=== PATIENT | male | born 1950 | race Caucasian/White ===

== ENCOUNTER 2019-08-13 11:48 | Outpatient (CLI) | payer MEDICARE, SELFPAY ==
--- NOTE | 2019-08-13 11:56 | XR_ITS ---
WS: [id number] ABDOMEN KUB CLINICAL INFORMATION: Renal/ureteral calculi. COMPARISON: FINDINGS: Lumbar curve convex left. Osteopenia. Vascular calcification. Stable appearing bilateral subcentimete r renal parenchymal calculi unchanged. No visualized ureteral calculi. XR/XR KUB [id number] Impression: A few unchanged subcentimeter renal parenchymal calculi. No ureteral calculi.
== END 2019-08-13 11:49 | disposition home or self-care (01) ==
LOC: RAD 11:55
PROVIDERS: Family Provider Family Medicine; PCP Family Medicine; Visit Provider Urology
DX: N20.1 Calculus of ureter (principal)
CPT/HCPCS: 74018

== ENCOUNTER 2020-02-13 06:58 | Outpatient (CLI) | payer MEDICARE, SELFPAY ==
--- NOTE | 2020-02-13 07:15 | US_ITS ---
WS: [id number] RENAL ULTRASOUND Urinary bladder ultrasound HISTORY: Enlarged prostate. COMPARISON: None available. TECHNIQUE: 2-D and color Doppler imaging of the kidney submitted. Right kidney: 10.0 cm x 5.4 cm x 6.9 cm. Normal echogenicity with no hydronephrosis or mass. Left kidney: 11.3 cm x 6.5 cm x 5.7 cm. Normal echogenicity with no hydronephrosis or mass. Aorta: Normal. Urinary Bladder: Moderately well distended urinary bladder. There is diffuse wall thickening. Marked enlargement of the prostate gland. Prostate gland is lobulated and indents into the posterior bladder . Prostate extends over length of at least 7.7 cm and transversely by 6.4 cm. US/US renal BI* [id number] IMPRESSION: 1. Normal renal ultrasound. No hydronephrosis. 2. Diffuse bladder wall thickening is probably from chronic outlet obstruction . 3. Marked enlargement and heterogeneity of the prostate gland. Prostate neopla sm is not excluded.
[2020-02-13 07:37] LABS: Anion Gap 15.5 (5-19); Blood Urea Nitrogen 20 mg/dL (8-23); Calcium 9.4 mg/dL (8.5-10.5); Carbon Dioxide 23 mmol/L (22-29); Chloride 100 mmol/L (98-107); Glomerular Filtration Rate 66.8 mL/min (90-130); Glucose 250 mg/dL (65-115); Osmolality Calculated 283 mOsm/kg (285-295); Potassium 4.5 mmol/L (3.5-5.1); Sodium 134 mmol/L (136-145)
== END 2020-02-13 06:59 | disposition home or self-care (01) ==
LOC: US 06:58
PROVIDERS: Family Provider Family Medicine; PCP Family Medicine; Visit Provider Urology
DX: R33.9 Retention of urine, unspecified (principal); N40.0 Benign prostatic hyperplasia without lower urinary tract symptoms
CPT/HCPCS: 76770; 80048; 84153

== ENCOUNTER → 2021-02-12 09:29 | Outpatient (BNVA) | payer OTHER, MEDICARE, SELFPAY | PROVIDERS: Family Provider Family Medicine; PCP Family Medicine; Visit Provider Urology | DX: N31.9 Neuromuscular dysfunction of bladder, unspecified (principal) | CPT/HCPCS: 80048; 84153 ==

== ENCOUNTER → 2021-08-19 10:58 | Outpatient (BNVA) | payer MEDICARE, SELFPAY | PROVIDERS: Family Provider Family Medicine; PCP Family Medicine; Visit Provider Urology | DX: N20.0 Calculus of kidney (principal); R97.20 Elevated prostate specific antigen [PSA] | CPT/HCPCS: 84153 ==

== ENCOUNTER → 2022-01-05 12:15 | Outpatient (BNVA) | payer MEDICARE, SELFPAY | PROVIDERS: Family Provider Family Medicine; PCP Family Medicine; Visit Provider Family Medicine | DX: M54.2 Cervicalgia (principal); E11.65 Type 2 diabetes mellitus with hyperglycemia; I10 Essential (primary) hypertension; E11.8 Type 2 diabetes mellitus with unspecified complications | CPT/HCPCS: 80053; 80061; 83036 ==

== ENCOUNTER 2022-02-10 09:15 | Outpatient (CLI) | payer MEDICARE, SELFPAY ==
[2022-02-10 10:31] LABS: Prostate Specific AG Urology 6.01 ng/mL (0-4)
== END 2022-02-10 09:16 | disposition home or self-care (01) ==
PROVIDERS: PCP Family Medicine; Visit Provider Urology
DX: R97.20 Elevated prostate specific antigen [PSA] (principal)
CPT/HCPCS: 36415; 84153

== ENCOUNTER → 2022-02-15 07:57 | Outpatient (BNVA) | payer MEDICARE, SELFPAY | PROVIDERS: PCP Family Medicine; Visit Provider Urology | DX: R97.20 Elevated prostate specific antigen [PSA] (principal); R33.9 Retention of urine, unspecified; N20.0 Calculus of kidney | CPT/HCPCS: 99213 ==

== ENCOUNTER → 2022-07-05 08:10 | Outpatient (BNVA) | payer MEDICARE, SELFPAY | PROVIDERS: PCP Family Medicine; Visit Provider Family Medicine | DX: E11.8 Type 2 diabetes mellitus with unspecified complications (principal); I10 Essential (primary) hypertension | CPT/HCPCS: 80053; 83036; 85025 ==

== ENCOUNTER → 2022-07-26 13:39 | Outpatient (BNVA) | payer MEDICARE, SELFPAY | PROVIDERS: PCP Family Medicine; Visit Provider Family Medicine | DX: L03.119 Cellulitis of unspecified part of limb (principal) | CPT/HCPCS: 85025; 86140 ==

== ENCOUNTER → 2022-07-29 08:34 | Outpatient (BNVA) | payer MEDICARE, SELFPAY | PROVIDERS: PCP Family Medicine; Visit Provider Podiatrist Foot & Ankle Surgery | DX: I73.9 Peripheral vascular disease, unspecified (principal); E11.621 Type 2 diabetes mellitus with foot ulcer; L97.529 Non-pressure chronic ulcer of other part of left foot with unspecified severity; L84 Corns and callosities; E11.9 Type 2 diabetes mellitus without complications; G62.9 Polyneuropathy, unspecified | CPT/HCPCS: 11055; 73630; 99204 ==

== ENCOUNTER → 2022-08-05 08:18 | Outpatient (BNVA) | payer MEDICARE, SELFPAY | PROVIDERS: PCP Family Medicine; Visit Provider Podiatrist Foot & Ankle Surgery | DX: E11.621 Type 2 diabetes mellitus with foot ulcer (principal); E11.9 Type 2 diabetes mellitus without complications; L03.119 Cellulitis of unspecified part of limb; I73.9 Peripheral vascular disease, unspecified; G62.9 Polyneuropathy, unspecified; L97.529 Non-pressure chronic ulcer of other part of left foot with unspecified severity; L97.429 Non-pressure chronic ulcer of left heel and midfoot with unspecified severity | CPT/HCPCS: 11042; A6219 ==

== ENCOUNTER → 2022-08-10 13:00 | Outpatient (BNVA) | payer MEDICARE, SELFPAY | PROVIDERS: PCP Family Medicine; Visit Provider Thoracic Surgery (Cardiothoracic Vascular Surgery) | DX: E11.621 Type 2 diabetes mellitus with foot ulcer (principal); L89.892 Pressure ulcer of other site, stage 2; E11.622 Type 2 diabetes mellitus with other skin ulcer; L89.622 Pressure ulcer of left heel, stage 2 | CPT/HCPCS: 99213; A6219 ==

== ENCOUNTER → 2022-08-17 11:49 | Outpatient (BNVA) | payer MEDICARE, SELFPAY | PROVIDERS: PCP Family Medicine; Visit Provider Thoracic Surgery (Cardiothoracic Vascular Surgery) | DX: I96 Gangrene, not elsewhere classified (principal); E11.621 Type 2 diabetes mellitus with foot ulcer; L89.892 Pressure ulcer of other site, stage 2; E11.622 Type 2 diabetes mellitus with other skin ulcer; L89.622 Pressure ulcer of left heel, stage 2 | CPT/HCPCS: 11042 ==

== ENCOUNTER 2022-08-19 14:34 | Outpatient (CLI) | payer MEDICARE, SELFPAY ==
--- NOTE | 2022-08-19 15:00 | USCV_ITS ---
Kushal Rodriguez Age: 72 Gender: M : 1950 Exam Date: 08/19/2022 15:53 Ordering Phys: Sundeep Schafer MD (Andy) ([email or web address] [place] Technologist: CT [place] [facility] [place]: pvd Risk Factors: Previous Vascular Surgery: RIGHT LEFT BP: 168.0 / 81.00 BP: 160.0/ 84.00 0 0 Waveform Velocity (cm/s) Velocity (cm/s) Waveform Triphasic 184.6 Iliac Prox 125.2 Triphasic Triphasic 169.2 Iliac Mid 122.2 Monophasic Triphasic 143.4 Iliac Distal 105.5 Triphasic Triphasic 193.7 INSTRUMENT PANEL ASSEMBLER 122.2 Monophasic Monophasic 133.6 SFA Prox 40.0 Monophasic Monophasic 201.1 SFA Mid 42.3 Monophasic Monophasic 111.4 SFA Dist 42.3 Monophasic Monophasic 53.8 POP 28.2 Monophasic Monophasic 82.8 CASHIERS SUPERVISOR 50.0 Monophasic Monophasic 28.7 DPA 0.0 N/A 0.9 OMAR 0.0 FINDINGS lft dpa is occluded and the left vessel captain will not occlude via cuff compression, left omar unattainable, left artial flow appears worse than rt. Mild to moderate diffuse plaque in the right iliac, femoral and popliteal arteries. Sluggish flow in the right dorsalis pedis artery Monophasic and continuous low velocity Doppler waveforms in the left mid and distal superficial femoral artery, popliteal and posterior tibial arteries. No flow was dictated in the dorsalis pedis artery. The left posterior tibial artery was found to be noncompressible CONCLUSIONS 1. Mild to moderate diffuse plaques in the right iliac, femoral and popliteal arteries with a resting OMAR of 0.9. Previous history of mild peripheral artery disease. 2. 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 The abnormal Doppler flow pattern is suggesting collateral filling of the mid to distal superficial femoral, popliteal and posterior tibial vessels. Suggest peripheral angiogram/CTA to further evaluate the arteries of the left lower extremity. Dr Courtney Isabel MD [facility] (Electronically Signed) Final Date: 20 August 2022 13:10 S
--- NOTE | 2022-08-19 16:00 | MR_ITS ---
WS: [id number] MRI CERVICAL SPINE NONCONTRAST HISTORY: neck pain/ pain and weakness in left arm COMPARISON: None available. Technique: Multiplanar, multisequence noncontrast imaging of the cervical spine. Mild straightening and slight reversal normal cervical lordosis. No fractures or marrow edema. Signal within the cervical cord is normal. Visualized posterior fossa is unremarkable. Craniocervical junction, C1 and C2 relationship, odontoid process and soft tissues are normal. C2-C3: Mild disc bulging. No high-grade stenosis. Mild inflammatory changes surrounding the LEFT face t joint. C3-C4: Small foraminal osteophytes. No stenosis. Mild LEFT facet joint inflammation. C4-C5: Mild osteophytic ridging. Moderate to severe bilateral foraminal stenosis. Mild facet arthriti s. C5-C6: Marked osteophytic ridging encroaching upon the ventral thecal sac and foramina. Mild central stenosis with moderate to severe foraminal stenosis. C6-C7: Small LEFT paracentral disc osteophyte protrusion. Moderate RIGHT foraminal stenosis. Mild fac et arthritis. C7-T1: Normal. Enlarged LEFT thyroid. Lower pole LEFT thyroid nodule measures 18 x 20 mm. MR/MR cervical spin wo con* [id number] IMPRESSION: 1. Mild central with moderate to severe bilateral foraminal stenosis at C5-6 d ue to disc and facet disease and osteophytosis. 2. Moderate to severe bilateral foraminal stenosis at C4-5. 3. Moderate RIGHT foraminal stenosis at C6-7. 4. LEFT facet joint synovitis at C2-3 and C3-4. 5. Enlarged LEFT thyroid with nodule measuring 18 x 20 mm. Nodule was previous ly biopsied in 2017.
== END 2022-08-19 14:35 | disposition home or self-care (01) ==
LOC: RAD 14:41
PROVIDERS: PCP Family Medicine; Visit Provider Family Medicine
DX: I73.9 Peripheral vascular disease, unspecified (principal); R53.1 Weakness; M79.602 Pain in left arm; M48.02 Spinal stenosis, cervical region; E04.1 Nontoxic single thyroid nodule; M65.88 Other synovitis and tenosynovitis, other site; M25.78 Osteophyte, vertebrae; I70.8 Atherosclerosis of other arteries
CPT/HCPCS: 72141; 93925

== ENCOUNTER 2022-08-19 14:43 | Outpatient (CLI) | payer MEDICARE, SELFPAY ==
[2022-08-19 17:21] LABS: Prostate Specific AG Urology 8.54 ng/mL (0-4)
== END 2022-08-19 14:44 | disposition home or self-care (01) ==
PROVIDERS: PCP Family Medicine; Visit Provider Urology
DX: R97.20 Elevated prostate specific antigen [PSA] (principal)
CPT/HCPCS: 36415; 84153

== ENCOUNTER → 2022-08-23 08:52 | Outpatient (BNVA) | payer MEDICARE, SELFPAY | PROVIDERS: PCP Family Medicine; Visit Provider Urology | DX: R33.9 Retention of urine, unspecified (principal); N20.0 Calculus of kidney; R97.20 Elevated prostate specific antigen [PSA] | CPT/HCPCS: 81003; 99213 ==

== ENCOUNTER → 2022-08-24 13:01 | Outpatient (BNVA) | payer MEDICARE, SELFPAY | PROVIDERS: PCP Family Medicine; Visit Provider Thoracic Surgery (Cardiothoracic Vascular Surgery) | DX: I96 Gangrene, not elsewhere classified (principal); E11.621 Type 2 diabetes mellitus with foot ulcer; L89.892 Pressure ulcer of other site, stage 2; E11.622 Type 2 diabetes mellitus with other skin ulcer; L89.622 Pressure ulcer of left heel, stage 2 | CPT/HCPCS: 11042; A6021; A6210 ==

== ENCOUNTER → 2022-08-31 11:06 | Outpatient (BNVA) | payer MEDICARE, SELFPAY | PROVIDERS: PCP Family Medicine; Visit Provider Thoracic Surgery (Cardiothoracic Vascular Surgery) | DX: I96 Gangrene, not elsewhere classified (principal); E11.621 Type 2 diabetes mellitus with foot ulcer; L89.892 Pressure ulcer of other site, stage 2; L89.622 Pressure ulcer of left heel, stage 2 | CPT/HCPCS: 11042; 97597 ==

== ENCOUNTER → 2022-09-06 08:52 | Outpatient (BNVA) | payer MEDICARE, SELFPAY | PROVIDERS: PCP Family Medicine; Visit Provider Podiatrist Foot & Ankle Surgery | DX: E11.621 Type 2 diabetes mellitus with foot ulcer (principal); L97.429 Non-pressure chronic ulcer of left heel and midfoot with unspecified severity; L97.529 Non-pressure chronic ulcer of other part of left foot with unspecified severity; L03.119 Cellulitis of unspecified part of limb; I73.9 Peripheral vascular disease, unspecified; G62.9 Polyneuropathy, unspecified; Z79.84 Long term (current) use of oral hypoglycemic drugs | CPT/HCPCS: 99213 ==

== ENCOUNTER → 2022-09-07 13:00 | Outpatient (BNVA) | payer MEDICARE, SELFPAY | PROVIDERS: PCP Family Medicine; Visit Provider Thoracic Surgery (Cardiothoracic Vascular Surgery) | DX: I96 Gangrene, not elsewhere classified (principal); E11.621 Type 2 diabetes mellitus with foot ulcer; L89.892 Pressure ulcer of other site, stage 2; L89.622 Pressure ulcer of left heel, stage 2 | CPT/HCPCS: 11042 ==

== ENCOUNTER → 2022-09-08 14:11 | Outpatient (BNVA) | payer MEDICARE, SELFPAY | PROVIDERS: PCP Family Medicine; Referring Provider Family Medicine; Visit Provider Orthopaedic Surgery | DX: M47.812 Spondylosis without myelopathy or radiculopathy, cervical region (principal) | CPT/HCPCS: 72050; 99204 ==

== ENCOUNTER 2022-09-12 14:41 | Outpatient (CLI) | payer MEDICARE, SELFPAY ==
--- NOTE | 2022-09-12 15:00 | CT_ITS ---
WS: [id number] CT ANGIOGRAPHY OF THE ABDOMINAL AORTA WITH RUNOFF TO THE ANKLES HISTORY: non-healing wound; PVD TECHNIQUE: Arterial injection is performed during imaging to evaluate the aorta and runoff vessels to the ankles. MIP and volume rendering imaging has also been performed. All images are reviewed. All C T scans at [facility] use at least one of these dose optimization techniques: automated exposu re control; mA and/or kV adjustment per patient size (includes targeted exams where dose is matched t o clinical indication); or iterative reconstruction. Contrast: Omnipaque 350; 95 mL IV. DLP: 785.96 mGy.cm COMPARISON: None available. Hyperinflated lung bases from emphysema. No mass or nodule. Normal size heart. Moderate size hiatal h ernia. Abdominal aorta: Extensive atherosclerotic plaque throughout the aorta with no aneurysm. Mild atheros clerotic plaque origin of the SMA and celiac axis. No high-grade stenosis. 50% stenosis proximal SMA. There is additional plaque continues throughout the SMA. Moderate stenosis involving the proximal re nal arteries bilaterally. Single renal arteries identified. There is very heavy calcification at the bifurcation of aorta. RIGHT lower extremity arterial system: 50% stenosis origin RIGHT common iliac artery. There is dense calcified plaque with additional areas of stenosis near 50% in the common iliac artery. Bifurcation i s intact with continued plaque through the femoral artery. Stenosis approaching 50% in the external i liac artery. 60% stenosis distal RIGHT femoral artery. Plaque continues into the SFA and deep profund a. Extensive calcified plaque throughout the SFA with multifocal areas of stenosis. Near complete occ lusion in the mid SFA and towards Jorge Luis's canal. Artery is very small caliber and probably completel y occluded to Jorge Luis's canal. Reconstitution. Very poor opacification and enhancement of the poplitea l artery and below the knee. Heavily calcified arteries. LEFT lower extremity due to system: Circumferential heavy calcified plaque in the common iliac artery with stenosis approximately 70%. Internal and external iliac arteries are patent with moderate plaqu e. High-grade stenosis proximal SFA, 80%. Complete occlusion proximal SFA. There are multifocal areas of severe plaque and stenosis throughout the SFA with attempt at reconstitution. Very poor opacifica tion. Very high-grade stenosis towards Jorge Luis's canal with additional areas of probable complete occl usion. Very limited opacification through the popliteal artery. Beginning in the distal popliteal art donavon opacification is limited. Heavily calcified three-vessel runoff to the ankle. No definite flow wi thin the arteries identified. Liver, spleen, gallbladder, pancreas and adrenals and kidneys are unremarkable. No adenopathy or asci antoni. Normal appendix. Markedly enlarged prostate gland with heterogeneous enhancement encroaching and lateral. Diffuse bladder wall thickening from chronic outlet obstruction. CT/CT angio abd aorta runof [id number] IMPRESSION: 1. Severe bilateral atherosclerotic disease with multifocal areas of stenosis in the lower extremity arterial system. 2. Extensive atherosclerotic plaque abdominal aorta with no aneurysm. Heavy ca lcification continues into the bifurcation and common iliac arteries. 3. 50% stenosis involving origin SMA. 4. Extensive plaque throughout the RIGHT lower extremity beginning in the comm on iliac artery. Multifocal areas of 50% stenosis. 60% stenosis distal RIGHT fe moral artery. 5. Near complete occlusion mid RIGHT SFA and at Jorge Luis's canal. Near complete or completely occluded SFA at Jorge Luis's canal. 6. LEFT common iliac artery stenosis 70%. 7. High-grade stenosis proximal LEFT SFA 80%. 8. Complete occlusion proximal LEFT SFA with additional areas of stenosis and plaque throughout the SFA and high-grade stenosis with probable complete occlus ion and Jorge Luis's canal. 9. Very limited contrast opacification of the popliteal arteries and arteries below the knees, bilateral. There is heavy calcification throughout the arterie s below the knee. Central lumen is difficult to visualize due to calcification and limited runoff.
[2022-09-12 15:32] LABS: Blood Urea Nitrogen 16 mg/dL (8-23)
[2022-09-12 15:33] LABS: Glomerular Filtration Rate 83.4 mL/min (90-130)
[2022-09-12] MEDS: iohexol 350 mg/mL 500 mL Btl (per mL) IV (15:48)
== END 2022-09-12 14:42 | disposition home or self-care (01) ==
PROVIDERS: PCP Family Medicine; Visit Provider Thoracic Surgery (Cardiothoracic Vascular Surgery)
DX: I73.9 Peripheral vascular disease, unspecified (principal); E11.9 Type 2 diabetes mellitus without complications
CPT/HCPCS: 75635; 82565; 84520; Q9967

== ENCOUNTER → 2022-09-14 13:03 | Outpatient (BNVA) | payer MEDICARE, SELFPAY | PROVIDERS: PCP Family Medicine; Visit Provider Thoracic Surgery (Cardiothoracic Vascular Surgery) | DX: I96 Gangrene, not elsewhere classified (principal); E11.621 Type 2 diabetes mellitus with foot ulcer; L89.892 Pressure ulcer of other site, stage 2; L89.622 Pressure ulcer of left heel, stage 2 | CPT/HCPCS: 11042; 11045; A6212 ==

== ENCOUNTER 2022-09-21 14:42 | Outpatient (CLI) | payer MEDICARE, SELFPAY ==
[2022-09-21 15:51] LABS: Basophils % 0.3 %; Eosinophils # 0.3 10^3/uL (0.0-0.8); Eosinophils % 2.2 %; Hematocrit 37.6 % (42.0-52.0); Hemoglobin 12.4 g/dL (11.7-16.6); Lymphocytes # 2.5 10^3/uL (0.8-4.8); Lymphocytes % 21.7 %; Mean Corpuscular Hemoglobin 31.4 pg (28.0-34.0); Mean Corpuscular Volume 95.2 fl (80-94); Mean Platelet Volume 9.8 fL (7.4-10.4); Monocytes % 8.5 %; Neutrophils # 7.66 10^3/uL (1.8-7.7); Nucleated Red Blood Cells % 0 %; Platelet Count 293 10^3/cmm (130-400); Red Blood Count 3.95 10^6/uL (4.1-5.3); Red Cell Distribution Width 12.3 % (12.1-15.1); White Blood Count 11.5 10^3/uL (4.0-10.0)
[2022-09-21 16:05] LABS: INR 1.07 (0.83-1.21); Prothrombin Time (Patient) 14.3 Seconds (12.0-15.1)
[2022-09-21 16:10] LABS: Anion Gap 18.8 (5-19); Blood Urea Nitrogen 24 mg/dL (8-23); Calcium 9.9 mg/dL (8.5-10.5); Carbon Dioxide 25 mmol/L (22-29); Chloride 98 mmol/L (98-107); Glomerular Filtration Rate 73.9 mL/min (90-130); Glucose 194 mg/dL (65-115); Osmolality Calculated 293 mOsm/kg (285-295); Potassium 4.8 mmol/L (3.5-5.1); Sodium 137 mmol/L (136-145)
== END 2022-09-21 14:43 | disposition home or self-care (01) ==
PROVIDERS: PCP Family Medicine; Visit Provider Internal Medicine Cardiovascular Disease
DX: I73.9 Peripheral vascular disease, unspecified (principal); I96 Gangrene, not elsewhere classified; E11.621 Type 2 diabetes mellitus with foot ulcer; L89.892 Pressure ulcer of other site, stage 2
CPT/HCPCS: 11042; 11045; 36415; 80048; 85025; 85610

== ENCOUNTER 2022-09-23 08:47 | Outpatient (CLI) | payer MEDICARE, SELFPAY ==
[2022-09-22 06:18] VITALS: BMI 32.5
[2022-09-23] VITALS (33 sets, daily range): BP systolic 129–163; BP diastolic 82–104; PULSE 74–138; RESP 13–26; TEMP 36.6; O2SAT 95–99; BMI 30.8
--- NOTE | 2022-09-23 07:30 | XACV_ITS ---
Ht: 188 cm Wt: 109 kg BSA: 2.41 m2 Gender: Male : 1950 Exam Type: Invasive Peripheral Vascular Procedure(s): Procedure Description: Diagnostic procedure Procedure Description: Peripheral Cath Diagnostic Procedure Procedure Description: Abdominal aortic angiography Procedure Description: Lower extremities' angiography Procedure Description: Peripheral vascular Intervention Procedure Description: PV Balloon Procedure Description: PV Atherectomy Procedure Description: Miscellaneous Procedure Description: ACT Exam Priority: Routine KHAMU2, Hicks; Lower Extremity Diagnostic Findings Indication for peripheral angiogram: Limb salvage for nonhealing ulcer of the left foot and pain at restThrough right groin using right common femoral artery after somewhat difficulty were able to cross highly calcified the right common iliac arteryUsing UF catheter with then performed aortogram: Abdominal aorta has luminal irregularity without significant stenosisBoth renal arteries were patentRunoff of the abdominal aorta showed left common iliac artery has luminal irregularity with proximal moderate stenosis but patent, right common iliac artery has moderate to severe proximal calcified stenosis, bilateral external/internal artery has luminal irregularity however left internal iliac artery has ostial high-grade stenosisSelective angiography of the left lower extremity was performedLeft common femoral has luminal irregularityLeft profundofemoral has luminal irregularityLeft proximal SFA is highly calcified chronically occluded vessel in the proximal segment it reconstitute in the mid segment, mid and distal left femoral artery has luminal irregularity, left popliteal artery has luminal irregularity, left tibioperoneal trunk is 100% occluded in the distal segment left anterior posterior tibial and peroneal vessels are 100% occludedRight lower extremity selective short was obtained which showed patent SFA, profunda, popliteal and tibial peroneal trunk. Right posterior tibial is patent, right anterior tibial and peroneal is chronically occluded. Lower Extremity Interventional Findings Percutaneous interventionRight 6 [place] short sheath was exchanged with long destination sheath, with the help of Glidewire and seeker after somewhat difficulty we were able to cross through the proximal to mid left SFA which is chronically occluded. Then with the help of Glidewire and seeker catheter we were also able to cross tibial peroneal trunk into anterior tibial artery. Viper wire was exchanged with a Glidewire. Using 2.0 CSI bur multiple runs were made in the proximal to mid SFA. Using 3.0 balloon we then dilated anterior tibial and tibial peroneal trunk artery. Using 6.0 balloon we then performed balloon angioplasty of the proximal to mid left SFA followed by application of 7.0 drug-coated balloon. Excellent angiographic result with good flow was achieved and left SFA tibioperoneal trunk. Both anterior and posterior tibial vessels became patent all the way to the left foot. For details please see the inventory for balloons and wires.. Recommendations Continue to follow-up with wound careSmoking cessation completeStatin aspirin clopidogrel for at least 3-month. Hemodynamic Data Phase:Rest AO : 179.0 / 70.0 ( 106.0 ) @ 12:12:00 PM 165.0 / 88.0 ( 108.0 ) @ 12:13:00 PM 152.0 / 86.0 ( 109.0 ) @ 12:44:00 PM 109.0 / 95.0 ( 103.0 ) @ 12:45:00 PM 134.0 / 103.0 ( 95.0 ) @ 12:47:00 PM 143.0 / 124.0 ( 92.0 ) @ 12:58:00 PM 108.0 / 57.0 ( 76.0 ) @ 1:02:00 PM 108.0 / 57.0 ( 78.0 ) @ 1:12:00 PM 105.0 / 75.0 ( 90.0 ) @ 1:20:00 PM 110.0 / 61.0 ( 82.0 ) @ 1:24:00 PM 113.0 / 62.0 ( 84.0 ) @ 1:35:00 PM 126.0 / 63.0 ( 88.0 ) @ 1:44:00 PM Access Site Site: Right Femoral artery Sheath Size: 6 Fr Hemost... Method: Suture Hemost... Success: Successful Procedure Details Findings Pre-Procedure Time Out. Identified patient by full name and date of as verbalized by the patient/guarantor. Does the consent match the physician's order: Yes. Accurate & Complete Informed Consent: Yes. Inpatient/Outpatient History & Physical on Chart: Yes. If H&P is completed, is and addenduem needed: No; If yes, is the addendum complete: N/A. Visualize and Verify Site with Patient/Guarantor: N/A. Relevant Radiology Images available: N/A. Pre-op teaching completed and patient verbalized understanding. The risks, benefits, and alternatives of sedation and/or procedure were discussed by physician. The patient agrees to continue. Procedure started. Correct patient, site and procedure confirmed by cath team. Current diagnosis: Leg Pain. PERRLA. 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 Lungs clear x 5 lobes. IV Site on Arrival: 20 gauge in the right anticubital. IV Fluids: 0.9% NaCl at KVO. 0 mL infused prior to laborer prestressed concrete. Pre Procedural Pulses: bilateral posterior tibial was 2+. Pre Procedural Pulses: right dorsalis pedis was Doppled. Pre Procedural Pulses: left dorsalis pedis was Doppled. Oxygen started at 3liters/min via nasal canula. bilateral groins was prepped with chloroprep then draped in the usual sterile fashion. Physician notified. Baseline sample Acquired. HR: 102 BPM. Admit Source: Out Patient. Physician arrived. Physician scrubbed in. Time out performed with cath team. Lidocaine 1% infiltrated to the right groin. Arterial access obtained with micropuncture set. A 5FrFr UF catheter in over wire. Abdominal aortogram performed in AP @ 10 mL/sec for a total of 30 mL. Glidewire inserted. Catheter removed over the glide wire. 6 Fr short sheath exchanged for 6 Fr 45cm Flexor sheath. Flexor sheath removed and 6Fr short sheath reinserted. Left common iliac selected and arteriogram with runoff performed @ 10 mL/sec for a total of 30 mL. A 5FrFr UF catheter in over glidewire. Left common iliac selected and arteriogram performed. Glidewire removed. Glidwire inserted. Catheter out. 6Fr short sheath exchanged for 6Fr 45cm Flexor sheath. Seeker catheter inserted over the wire. Glidewire removed. Amplatz stiff wire inserted through the seeker. Seeker removed. Amplatz stiff wire removed. Left common iliac selected and arteriogram with runoff performed @ 10 mL/sec for a total of 20 mL. Glidewire inserted. Seeker catheter inserted over the wire. Viperwire inserted through the Seeker catheter. Seeker catheter out OTW. Inavale inserted OTW. Anesthesia arrived to administer sedation. Orbital atherectomy performed to Prox SFA. Inavale removed over the Viperwire. Balloon inserted over the wire to the superficial femoral. Inflation number : 1 A AB Alicia 35 WIND TURBINE CONTROLS ENGINEER Catheter [id number] was prepped and advanced across the Proximal Superficial Femoral, Left , then inflated to 8 NAKUL for 2:00 seconds. Inflation number: 2 The AB Alicia 35 WIND TURBINE CONTROLS ENGINEER Catheter [id number] was reinflated across the Proximal Superficial Femoral, Left, to 8 NAKUL for 1:00 seconds. Balloon out. Left common iliac selected and arteriogram with runoff performed @ 10 mL/sec for a total of 20 mL. Balloon inserted over the wire to the tibial peroneal trunk. Inflation number : 1 A AB ARMADA 14 OTW [id number] was prepped and advanced across the Tibial Peroneal Trunk, Left , then inflated to 6 NAKUL for 2:00 seconds. Inflation number: 2 The AB ARMADA 14 OTW [id number] was reinflated across the Tibial Peroneal Trunk, Left, to 8 NAKUL for 1:00 seconds. Balloon out over wire. Left common iliac selected and arteriogram with runoff performed @ 10 mL/sec for a total of 20 mL. Drug coated Lutonix balloon inserted. Inflation number : 3 A Lutonix 7.0x 60mm was prepped and advanced across the Proximal Superficial Femoral, Left , then inflated to 7 NAKUL for 1:00 seconds. Lot # [id number] Exp 07/13/2023. Inflation number: 4 The Lutonix 7.0x 60mm was reinflated across the Proximal Superficial Femoral, Left, to 7 NAKUL for 1:00 seconds. Inflation number: 5 The Lutonix 7.0x 60mm was reinflated across the Proximal Superficial Femoral, Left, to 6 NAKUL for 1:00 seconds. Balloon out over wire. Left common iliac selected and arteriogram with runoff performed @ 10 mL/sec for a total of 30 mL. Left common iliac selected and arteriogram with runoff performed @ 10 mL/sec for a total of 30 mL. Seeker catheter in over the Viperwire. Viperwire removed. Glidewire inserted through the Seeker catheter. Seeker catheter removed. Flexor sheath removed over Glidewire. 6Fr short sheath inserted over Glidewire. Glidewire removed. Right common iliac selected and arteriogram performed. ACT drawn. Results 176 seconds. Therapeutic limits - pre-heparin administration 90-150 seconds and monitoring heparin during a vascular procedure >250 seconds. A Suture was successful obtaining hemostatsis at the Right Femoral artery insertion site. Sheath(s) sutured into position with 2-0 silk and sterile 4x4's and Op-site applied over the site. No oozing or signs and symptoms of hematoma noted. Arterial sheath flushed and connected to tranducer and pressure bag with heparinized saline. Post Procedure: Pulses reassessed and unchanged. PERRLA. 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 No VTE prophylaxis required. Medication's Wasted: Nitro = 49.2 mg. Medication's Wasted: Heparin = 3000 u. Total IV fluids: 160 mL. Post-op diagnosis: PVD. Complications: none. Estimated blood loss: 5mL-10mL. Responsiveness - Normal response to verbal stimuli; alert and oriented, PERRLA. Airway - Unaffected, no intervention required; spontaneous ventilation. Circulation: W/N/L, pulses unchanged. Nausea/Vomiting: No. Procedure completed. Patient transferred by bed to 1st floor. Vital chart was stopped. Procedure Medications Start: 11:02 AM Stop: 11:02 AM Medication: Versed Amount: 2 mg Route: I.V. Start: 11:02 AM Stop: 11:02 AM Medication: Fentanyl Amount: 50 mcg Route: I.V. Start: 11:06 AM Stop: 11:06 AM Medication: Fentanyl Amount: 25 mcg Route: I.V. Start: 11:10 AM Stop: 11:10 AM Medication: Versed Amount: 1 mg Route: I.V. Start: 11:15 AM Stop: 11:15 AM Medication: Hydralazine Amount: 10 mg Route: I.V. Start: 11:19 AM Stop: 11:19 AM Medication: Fentanyl Amount: 25 mcg Route: I.V. Start: 11:19 AM Stop: 11:19 AM Medication: Versed Amount: 1 mg Route: I.V. Start: 11:37 AM Stop: 11:37 AM Medication: Morphine Amount: 2 mg Route: I.V. Start: 11:45 AM Stop: 11:45 AM Medication: Heparin Amount: 5000 units Route: I.V. Start: 11:48 AM Stop: 11:48 AM Medication: Versed Amount: 1 mg Route: I.V. Start: 11:48 AM Stop: 11:48 AM Medication: Fentanyl Amount: 25 mcg Route: I.V. Start: 11:53 AM Stop: 11:53 AM Medication: Heparin Amount: 5000 units Route: I.V. Start: 12:00 PM Stop: 12:00 PM Medication: Morphine Amount: 2 mg Route: I.V. Start: 12:09 PM Stop: 12:09 PM Medication: Fentanyl Amount: 50 mcg Route: I.V. Start: 12:35 PM Stop: 12:35 PM Medication: Nitrogylcerin Amount: 400 mcg Route: I.A. Start: 12:44 PM Stop: 12:44 PM Medication: Nitrogylcerin Amount: 400 mcg Route: I.A. Start: 1:00 PM Stop: 1:00 PM Medication: Plavix Amount: 300 mg Route: P.O. I, the attending physician, have reviewed and verified all procedure medications. Yes, all medications given per verbal order History/Risk Factors Hypertension: Yes Dyslipidemia: No Peripheral Arterial Disease (PAD): Yes Myocardial Infarction (TN): Yes Obesity: Yes Renal Disease: No Tobacco Use: Current/Recent(w/in 1 year) Prior Interventions PCI: Yes CABG: No Valve Surgery: No Date of PCI: 09/23/2022 Report Signatures Finalized by Jessica Hicks MD on 09/26/2022 01:15 AM
[2022-09-23 09:32] LABS: Glucose Point of Care 216 mg/dL (70-110)
--- NOTE | 2022-09-23 10:08 | P.HP_ITS ---
Same Day Surgery H&P Indication for Procedure/HPI DATE OF PROCEDURE: September 23, 2022 CHIEF COMPLAINT/INDICATIONFOR SURGICAL PROCEDURE: Critical limb ischemia with nonhealing left foot ulcer PREOP DIAGNOSIS: Critical limb ischemia with nonhealing left foot ulcer, severe PAD PLANNED PROCEDURE: Operation Date: 09/23/22 08:30 Proposed Procedures p perip angiogram 29515,R94.39(Not Applicable) - Jessica Hicks MD 72-year-old male with nonhealing left foot ulcer lifestyle limiting claudication hypertension hyperlipidemia history of smoking had CTA with runoff which showed extensive bilateral iliac SFA disease. Due to worsening of left foot and critical limb ischemia with possible limb threatening features patient has been brought in today for peripheral angiogram and percutaneous intervention if indicated. Patient has been explained all risk benefit and alternative for the procedure he understand risk for urgent emergent surgery stroke major minor bleed limb loss amputation distal embolization renal failure contrast- induced nephropathy. He understood it and would like to proceed with it. ROS As above Medications/Allergies* Home Medications Medication Instructions Recorded Confirmed Type bimatoprost 0.01 % eye drops 1 drop ophthalmic (eye) DAILY 08/13/19 09/22/22 History (Lumigan) brimonidine 0.2 %-timolol 0.5 % 1 drop ophthalmic (eye) BID 08/13/19 09/22/22 History eye drops (Combigan) coenzyme B05-[id number] E 100 mg-100 cap PO 08/13/19 09/08/22 History unit capsule cranberry 1,000 mg capsule 1,000 mg PO DAILY 08/13/19 09/22/22 History elderberry fruit 0.7 gram-honey 3 ml PO 08/13/19 09/08/22 History gram/7.5 mL oral liquid multivitamin,cq-olpx-wafnzeff 1 tab PO DAILY 08/13/19 09/22/22 History (Complete Multivitamin tablet) pyridoxine (vitamin B6) 200 mg 200 mg PO DAILY 08/13/19 09/22/22 History tablet,extended release turmeric 1 tab PO DAILY 08/19/21 09/23/22 History cinnamon bark 500 mg capsule 500 mg PO DAILY 02/15/22 09/22/22 History empagliflozin 25 mg tablet 25 mg PO DAILY 09/22/22 09/22/22 History (Jardiance) glimepiride 2 mg tablet 2 mg PO BID 09/22/22 09/22/22 History metoprolol tartrate 25 mg tablet 25 mg PO BID 09/22/22 09/22/22 History Allergies/Adverse Reactions Allergy/AdvReac Type Severity Reaction Status Date / Time metformin AdvReac Intermediate GI issues Verified 09/23/22 09:57 NSAIDS (Non-Steroidal AdvReac Intermediate raised bp Verified 09/23/22 09:57 Anti-Inflamma Pertinent History/Comorbid Conditions* Medical History (Updated 09/08/22 @ 15:19 by Tray Grover DO) Diabetes mellitus Elevated PSA Foraminal stenosis of cervical region Intermittent self-catheterization of bladder Neurogenic bladder PAD (peripheral artery disease) Renal and ureteric calculus Renal stones Urinary retention Surgical History (Updated 08/13/19 @ 13:23 by Frank Medina MD) History of hand surgery History of tonsillectomy Family History (Updated 08/09/19 @ 16:00 by Karolina Acuna LPN) Father, at age 66 Mother, at age 85 ALS (amyotrophic lateral sclerosis) Sister CHF (congestive heart failure) Mother Social History Smoking and tobacco status: current some day smoker cigars Alcohol intake: never Adopted: No Caregiver/support person: No Lives independently: No Household members: spouse Marital status: Current occupational status: retired Pertinent Exam Findings oriented x 3, clear to auscultation bilaterally, regular rate & rhythm and operative site marked Alert awake oriented x3 No JVD cyanosis icterus Heart regular S1-S2 Abdomen soft nontender not Lower extremity left foot wrapped, right DP not dopplerable Conscious Sedation Assessment PATIENT ASSESSED PRIOR TO SEDATION, WITH NO CHANGE NOTED: Yes AIRWAY EVAL/ANESTHESIA PLAN: ASA II ADDITIONAL INFORMATION: Mallampati 2 Recommendations Surgery/Procedure today Other Plans: We will proceed with peripheral angiogram through right common femoral approach or if indicated radial approach Coding Level of Care Code Acute Code for Chg Fwd
[2022-09-23] MEDS: diphenhydrAMINE 50 mg Capsule PO (10:10)
[2022-09-23] MEDS: HYDROcodone-acetaminophen 5-325 mg Tablet 1 TAB PO (13:50)
--- NOTE | 2022-09-23 14:12 | XACV_ITS ---
Exam Room: [facility] Ht: 188 cm Wt: 109 kg BSA: 2.41 m2 Gender: Male : 1950 Exam Priority: Routine Procedure(s): Procedure Description: Diagnostic procedure Procedure Description: PCI procedure Procedure Description: Drug Eluting Coronary Stent Procedure Description: PTCA Procedure Description: Cutting Balloon Procedure Description: Miscellaneous Procedure Description: ACT Procedure Description: Coronary Angiography Kurt PACHECO; Diagnostic Cath Status: Emergency Diagnostic Findings * 72-year-old male past medical history significant for 31-lgwp-ozef of tobacco abuse hypertension hyperlipidemia severe peripheral vascular disease with nonhealing left foot no prior history of coronary artery disease underwent successful intervention of the left SFA tibioperoneal trunk anterior and tibial artery. During recovery patient started complaining of chest pain, immediately twelve-lead EKG was performed which was suggestive of anterolateral ST depression suggestive of ongoing ischemia. Patient was taken back to the Service Parts Driver for angiogram.#1 Left main is large caliber vessel with luminal irregularities#2 LAD is calcified vessel with ostial moderate stenosis it is a calcified lesion. Mid LAD is subtotally occluded, it is highly calcified vessel with SHELLEY II flow #3 Left circumflex appeared to be a dominant or codominant vessel with highly calcified proximal eccentric moderate to severe lesion#4 RCA is chronically occluded codominant calcified vessel. PCI Indication: STEMI - Immediate PCI for STEMI Interventional Findings * Emergent PCI was performed to mid LAD which was subtotally occluded with SHELLEY I flow, with the help of CLS 3.5 guide run-through wire was used with over balloon technique and after somewhat difficulty we were able to cross the mid LAD lesion. Multiple balloon angioplasty using compliant noncompliant and score flex balloons were performed due to calcified nature of the vessel. 2.75x30 and 2.75x15 [place] overlapping drug-eluting stents were used to stent the mid LAD. Both stent was then postdilated with 3.0 x 12 mm noncompliant Euphora balloon at high pressure. IVUS was performed which confirmed good apposition of the stents. Excellent angiographic result with SHELLEY-3 flow was achieved.. Recommendations * Due to high contrast achievement and radiation we concluded the procedure after opening of the mid LAD with intention to bring him back in couple of weeks for staged PCI to proximal circumflex and ostial LAD if noted to be significant.Continue dual antiplatelet therapy for at least 1 yearGuideline medical therapy for acute coronary syndrome.Return to CSU for post PCI care. Interventional RX Recommendation: PCI w/o planned CABG Diagnostic RX Recommendation: PCI w/o planned CABG Pressures Phase:Rest AO : 117 / 78 ( 93 ) @ 3:35:00 PM 104 / 44 ( 66 ) @ 3:39:00 PM 110 / 57 ( 80 ) @ 3:56:00 PM Clinical Evaluation EBL: 5mL-10mL Procedural Details Pre-Procedure Time Out. Identified patient by full name and date of as verbalized by the patient/guarantor. Does the consent match the physician's order: N/A Emergent; Informed Consent not obtained due to time critical life threat. Accurate & Complete Informed Consent: N/A Emergent; Informed Consent not obtained due to time critical life threat. Inpatient/Outpatient History & Physical on Chart: Yes. If H&P is completed, is and addenduem needed: N/A; If yes, is the addendum complete: N/A. Visualize and Verify Site with Patient/Guarantor: N/A. Relevant Radiology Images available: N/A. Pre-op teaching completed and patient verbalized understanding. The risks, benefits, and alternatives of sedation and/or procedure were discussed by physician. The patient agrees to continue. Procedure started. [facility] Clinical Fraility Score: 4: Vulnerable. Service Parts Driver Indications: New Onset Angina. Chest Pain Symptom Assessment: Typical Angina Symptoms. Correct patient, site and procedure confirmed by cath team. Current diagnosis: STEMI. PERRLA. Strong, equal hand nutrition program instructor bilaterally. Lungs clear x 5 lobes. IV Site on Arrival: 20 gauge in the right anticubital. IV Fluids: 0.9% NaCl at KVO. 300 mL infused prior to agricultural labor camp manager. Pre Procedural Pulses: bilateral dorsalis pedis was Doppled. Oxygen started at 2liters/min via nasal canula. right groin was prepped with chloroprep then draped in the usual sterile fashion. Physician notified. Baseline sample Acquired. HR: 105 BPM. Physician arrived. Physician scrubbed in. Immediate Pre-Procedure Time Out. Lidocaine 1% infiltrated to the right groin. A 5 palauan JR4 catheter in over wire. Multiple views taken of right coronary artery. Catheter removed over the standard wire. PCI Indication: STEMI. A 5 palauan JL4 catheter in over wire. Multiple views taken of left coronary artery. 6 palauan XB 3.5 guide catheter was inserted over the wire. ACT drawn. Results 152 seconds. Therapeutic limits - pre-heparin administration 90-150 seconds and monitoring heparin during a vascular procedure >250 seconds. Runthrough guidewire was advanced through the guide catheter to lesion in the mid LAD. Balloon inserted into mid LAD. Inflation number : 1 A AB MINI TREK 2.00X12 RX BALLOON was prepped and advanced across the Mid LAD , then inflated to 18 NAKUL for 0:16 seconds. Inflation number: 2 The AB MINI TREK 2.00X12 RX BALLOON was reinflated across the Mid LAD, to 18 NAKUL for 0:10 seconds. Inflation number: 3 The AB MINI TREK 2.00X12 RX BALLOON was reinflated across the Mid LAD, to 18 NAKUL for 0:06 seconds. Inflation number: 4 The AB MINI TREK 2.00X12 RX BALLOON was reinflated across the Mid LAD, to 18 NAKUL for 0:07 seconds. Results checked. Inflation number: 5 The AB MINI TREK 2.00X12 RX BALLOON was reinflated across the Mid LAD, to 20 NAKUL for 0:11 seconds. Inflation number: 6 The AB MINI TREK 2.00X12 RX BALLOON was reinflated across the Mid LAD, to 20 NAKUL for 0:14 seconds. Balloon back in guide. Results checked. Balloon out. Scoreflex Balloon inserted to lesion in the mid LAD. Inflation number : 7 A Scoreflex 2.5x15mm was prepped and advanced across the Mid LAD , then inflated to 12 NAKUL for 0:13 seconds. Inflation number: 8 The Scoreflex 2.5x15mm was reinflated across the Mid LAD, to 12 NAKUL for 0:12 seconds. Balloon out. Catheter out. Inflation Number : 9 A MDT R ROBERTO 2.5X30 KEMAL -Lot Number# [id number] Exp 10/18/2024 was prepped and advanced across the Mid LAD. The stent was deployed at 14 NAKUL for 0:25 seconds. Stent inserted to lesion in the mid LAD. Stent balloon out over wire. Results checked. Inflation Number : 10 A MDT R ROBERTO 2.75X15 KEMAL -Lot Number# [id number] Exp 06/06/24 was prepped and advanced across the Mid LAD. The stent was deployed at 12 NAKUL for 0:15 seconds. Stent inserted to lesion in the mid LAD. Stent balloon out over wire. Balloon inserted to lesion in the mid LAD. Inflation number : 11 A MDT NC EUPHORA RX 3.06L77NV BALLOON was prepped and advanced across the Mid LAD , then inflated to 8 NAKUL for 0:10 seconds. Inflation number: 12 The MDT NC EUPHORA RX 3.50N56AC BALLOON was reinflated across the Mid LAD, to 14 NAKUL for 0:10 seconds. Inflation number: 13 The MDT NC EUPHORA RX 3.58W90RR BALLOON was reinflated across the Mid LAD, to 16 NAKUL for 0:19 seconds. Inflation number: 14 The MDT NC EUPHORA RX 3.12Y87YU BALLOON was reinflated across the Mid LAD, to 16 ANKUL for 0:13 seconds. Inflation number: 15 The MDT NC EUPHORA RX 3.04A28LI BALLOON was reinflated across the Mid LAD, to 18 NAKUL for 0:18 seconds. Balloon out. IVUS catheter advanced across lestion. IVUS run obtained. IVUS catheter removed. Runthrough wire removed. Results checked. Guide catheter out. A Suture was successful obtaining hemostatsis at the Right Femoral artery insertion site. Sheath(s) sutured into position with 2-0 silk and sterile 4x4's and Op-site applied over the site. No oozing or signs and symptoms of hematoma noted. Arterial sheath flushed and connected to pressure bag with heparinized saline. Post Procedure: Pulses reassessed and unchanged. PERRLA. Strong, equal hand nutrition program instructor bilaterally. No VTE prophylaxis required. Medication's Wasted: Heparin = 4000 u. Medication's Wasted: Lidocaine 1% = 4 mL. Medication's Wasted: Nitro = 50 mg. Total IV fluids: 58 mL. Complications: none. Estimated blood loss: 5mL-10mL. Responsiveness - Normal response to verbal stimuli; alert and oriented, PERRLA. Airway - Unaffected, no intervention required; spontaneous ventilation. Circulation: W/N/L, pulses unchanged. Nausea/Vomiting: No. Procedure completed. Patient transferred by bed to 1st floor. Vital chart was stopped. Access Site Site: Right Femoral artery Sheath Size: 6 Fr Hemostasis Method: Suture Hemostasis Success: Successful Procedure Medications Start: 2:34 PM Stop: 2:34 PM Medication: Versed Amount: 1 mg Route: I.V. Start: 2:34 PM Stop: 2:34 PM Medication: Fentanyl Amount: 50 mcg Route: I.V. Start: 2:41 PM Stop: 2:41 PM Medication: Heparin Amount: 7000 units Route: I.V. Start: 2:51 PM Stop: 2:51 PM Medication: Versed Amount: 2 mg Route: I.V. Start: 2:52 PM Stop: 2:52 PM Medication: Fentanyl Amount: 50 mcg Route: I.V. Start: 2:40 PM Stop: 2:40 PM Medication: Versed Amount: 1 mg Route: I.V. Start: 2:43 PM Stop: 2:43 PM Medication: Aggrastat 12.5 mg/250 mL Amount: 54 ml Route: I.V. bolus Start: 2:43 PM Stop: 2:43 PM Medication: Aggrastat 12.5 mg/250 mL Amount: 19.4 ml/hr Route: I.VSharri rocha I, the attending physician, have reviewed and verified all procedure medications. Yes, all medications given per verbal order History/Risk Factors Hypertension: Yes Dyslipidemia: No Peripheral Arterial Disease (PAD): Yes Myocardial Infarction (VA): Yes Obesity: Yes Renal Disease: No Tobacco Use: Current/Recent(w/in 1 year) Prior Interventions PCI: Yes CABG: No Valve Surgery: No Date of PCI: 09/23/2022 Report Signatures Finalized by Jessica Hicks MD on 09/26/2022 01:40 AM
[2022-09-23] MEDS: morphine 4 mg/mL SDV 1 mL 2 MG IVP (14:15)
--- NOTE | 2022-09-23 14:18 | ECG_ITS ---
[facility] Test Date: 2022-09-23 Pat Name: Kushal Rodriguez Department: Room: 111 Gender: Male Rug Clipper: : 1950 Requested By: Jessica Hicks Order Number: [id number] Reading MD: JESSICA HICKS Measurements Intervals [place] Rate: 81 P: 47 [place]: 174 QRS: 35 QRSD: 97 T: 70 QT: 362 QTc: 421 Interpretive Statements SINUS RHYTHM POSSIBLE INFERIOR MYOCARDIAL INFARCTION , PROBABLY OLD [30 ms Q WAVE IN II/aVF] MARKED ST DEPRESSION, CONSIDER SUBENDOCARDIAL INJURY [0.2+ mV ST DEPRESSION] ACUTE [place] INTERPRETATION BASED ON A DEFAULT AGE OF 40 YEARS Compared to ECG 07/25/2016 11:55:47 Myocardial infarct finding now present ST (T wave) deviation now present Sinus bradycardia no longer present Electronically Signed On 09-24-2022 23:43:50 CDT by EJSSICA HICKS [id number] f
--- NOTE | 2022-09-23 15:23 | PM.HP ---
Providers/Chief Complaint Admitting Physician: Jessica Hicks MD Primary Care Provider: Ryan Joseph MD Chief Complaint: ST elevation [place] History of Present Illness Kushal Rodriguez is a 72 year old male past medical history significant for severe peripheral arterial disease, chronic tobacco abuse quit few days ago, hypertension hyperlipidemia he was here for critical limb ischemia of the left lower leg with nonhealing ulcer, he underwent peripheral angiogram noted to have highly calcified significant chronically occluded proximal SFA and chronically occluded distal tibioperoneal trunk with proximal anterior tibial, it was treated with arthrectomy and balloon angioplasty followed by drug-coated balloon with excellent angiographic result. Good two-vessel runoff was noted all the way to left foot. Patient went back in recovery started having chest pain twelve-lead EKG showed anterolateral ST depression suggestive of possible long LAD mid occlusion. He was immediately taken to the Reverse Logistics Analyst noted to have chronically occluded RCA proximal moderate circumflex lesion and mid torturous highly calcified subtotally occluded LAD with long lesion SHELLEY I flow. It was a culprit vessel, after somewhat difficulty with the help of balloon over the wire we were able to cross the lesion, multiple balloon angioplasty with compliant and angioscope balloon were performed to open up the lesion. It was then treated with 2 overlapping drug-eluting stents postdilated with 3.0 noncompliant balloon. IVUS was performed which showed good apposition of the stents. Excellent angiographic result with SHELLEY-3 flow was restored. Patient was loaded with Plavix and transferred back to [facility]SU in a stable condition Medications/Allergies Home Medications Medication Instructions Recorded Confirmed Last Taken Type bimatoprost 0.01 % eye drops 1 drop ophthalmic (eye) DAILY 08/13/19 09/22/22 09/22/22 04:30 History (Lumigan) brimonidine 0.2 %-timolol 0.5 % 1 drop ophthalmic (eye) BID 08/13/19 09/22/22 09/22/22 04:30 History eye drops (Combigan) coenzyme T71-zlqwdep E 100 mg-100 cap PO 08/13/19 09/08/22 09/22/22 18:30 History unit capsule cranberry 1,000 mg capsule 1,000 mg PO DAILY 08/13/19 09/22/22 09/22/22 04:30 History elderberry fruit 0.7 gram-honey 3 ml PO 0209/08/22 09/22/22 04:30 History gram/7.5 mL oral liquid multivitamin,kh-afhu-cpcsvdmp 1 tab PO DAILY 08/13/19 09/22/22 09/22/22 04:30 History (Complete Multivitamin tablet) pyridoxine (vitamin B6) 200 mg 200 mg PO DAILY 08/13/19 09/22/22 09/22/22 04:30 History tablet,extended release turmeric 1 tab PO DAILY 08/19/21 09/23/22 09/22/22 04:30 History cinnamon bark 500 mg capsule 500 mg PO DAILY 02/15/22 09/22/22 09/22/22 18:30 History enalapril maleate 10 mg tablet See Rx Instructions .Route 06/06/22 09/22/22 09/22/22 04:30 Rx .COMPLEX #90 tabs blood sugar diagnostic (Accu-Chek #100 strips 08/30/22 09/08/22 Unknown Rx Guide test strips) hydrocodone 5 mg-acetaminophen 325 1 tab PO Q6H PRN pain 1 month #120 08/30/22 09/23/22 09/22/22 18:30 Rx mg tablet tabs Diabetic shoes and 3 pairs of #1 ea 09/06/22 09/08/22 Unknown Rx inserts Wheelchair #1 ea 09/06/22 09/08/22 Unknown Rx sodium chloride 0.9 % irrigation 1 irrig irrigation DAILY wound 09/21/22 09/23/22 09/23/22 04:30 Rx solution care 30 days #500 mL empagliflozin 25 mg tablet 25 mg PO DAILY 09/22/22 09/22/22 09/22/22 04:30 History (Jardiance) glimepiride 2 mg tablet 2 mg PO BID 09/22/22 09/22/22 09/22/22 18:30 History metoprolol tartrate 25 mg tablet 25 mg PO BID 09/22/22 09/22/22 09/22/22 04:30 History Allergies Allergy/AdvReac Type Severity Reaction Status Date / Time metformin AdvReac Intermediate GI issues Verified 09/23/22 09:57 NSAIDS (Non-Steroidal AdvReac Intermediate raised bp Verified 09/23/22 09:57 Anti-Inflamma PFSH Acute PFSH: Medical History Diabetes mellitus Elevated PSA Foraminal stenosis of cervical region Intermittent self-catheterization of bladder Neurogenic bladder PAD (peripheral artery disease) Renal and ureteric calculus Renal stones Urinary retention Surgical History History of hand surgery History of tonsillectomy Family History Mother , at age 85 CHF (congestive heart failure) Sister ALS (amyotrophic lateral sclerosis) Father , at age 66 No problems noted. Social History Smoking and tobacco status: current some day smoker cigars Alcohol intake: never Adopted: No Caregiver/support person: No Lives independently: No Household members: spouse Marital status: Current occupational status: retired Vitals/I&O/Wt Last Vital Signs Temp 97.8 F 09/23/22 10:04 Pulse 75 09/23/22 10:04 Resp 16 09/23/22 14:15 BP 152/83 09/23/22 10:04 Pulse Ox 98 09/23/22 10:04 O2 Del Method 09/23/22 10:04 Weight last 48 hrs Weight 240 lb Weight 240 lb Physical Exam Narrative: Alert awake oriented x3 moderate to severe distress because of chest pain at the time of acute coronary syndrome No JVD cyanosis icterus Heart regular S1-S2 no murmur rub or gallop Lungs decreased breath sound bilateral Abdomen soft nontender nondistended REGISTERED PHYSICAL THERAPIST grossly nonfocal A&P Assessment and plan (1) Acute coronary syndrome: Status post PCI to mid LAD with 2 overlapping drug-eluting stent. Continue aspirin and statin Plavix, sheath will be discontinued once PTT is less than 45 minutes. Bedrest for 5 hours, will start patient on beta-ovidio and CHARU inhibitor over next 24 hours, echocardiogram will be obtained to (2) PAD (peripheral artery disease): Plan Status post arthrectomy and balloon angioplasty of proximal to mid left SFA and balloon angioplasty of distal left tibial peroneal trunk and anterior to mid left anterior tibial with excellent angiographic result and good flow two-vessel runoff into the foot. Continue aspirin statin Plavix. Attestations Medical Necessity Statement*: I am expecting patient's stay to cross more than 2 midnight Coding Level of Care Code Acute Code for Chg Fwd Diagnoses Acute coronary syndrome I24.9 PAD (peripheral artery disease) I73.9
--- NOTE | 2022-09-23 16:36 | ECG_ITS ---
[facility] Test Date: 2022-09-23 Pat Name: Kushal Rodriguez Department: Room: 111 Gender: Male Corporate Account Executive: : 1950 Requested By: Jessica Hicks Order Number: [id number] Reading MD: JESSICA HICKS Measurements Intervals [place] Rate: 88 P: 37 CO: 160 QRS: 77 QRSD: 115 T: 71 QT: 351 QTc: 426 Interpretive Statements SINUS RHYTHM PROBABLE INFERIOR MYOCARDIAL INFARCTION , PROBABLY OLD [35 ms Q WAVE IN II/aVF] MARKED ST DEPRESSION, CONSIDER SUBENDOCARDIAL INJURY [0.2+ mV ST DEPRESSION] ACUTE [place] Compared to ECG 09/23/2022 14:04:07 No significant changes Electronically Signed On 09-24-2022 23:37:29 CDT by JESSICA HICKS [id number]
--- NOTE | 2022-09-23 17:07 | XACV_ITS ---
Exam Room: [facility] Ht: 188 cm Wt: 109 kg BSA: 2.41 m2 Gender: Male : 1950 Exam Priority: Routine Procedure(s): Procedure Description: Diagnostic procedure Procedure Description: PCI procedure Procedure Description: Drug Eluting Coronary Stent Procedure Description: PTCA Procedure Description: Coronary Angiography Procedure Description: Pressure Wire Kurt PACHECO; Diagnostic Cath Status: Emergency PCI Status: Emergency PCI Indication: NSTE - ACS Interventional Findings * After 1 hour into recovery of mid LAD stent I was called again by the nurse that patient started having crushing chest pain. I immediately saw the patient twelve-lead EKG was performed which still shows significant anterolateral ST depressions. No prior EKG before this admission or record available to me. Since pain was not relieved with nitro or morphine, he was taken back to the Wire Twister. Patient was noted to have patent mid LAD stents. It was thought that patient is becoming ischemic due to highly calcified ostial to proximal circumflex and LAD bifurcating complicated lesion. An attempt to revascularization was made in this emergent situation. CLS 3.5 guide was used to engage and cross with 2 wires one in LAD other in circumflex. Multiple balloon angioplasty with compliant noncompliant and score flex balloon was used to dilate proximal circumflex lesion. LAD ostium was also predilated. 3.0 x 22 mm Roberto stent was used in the circumflex along with 3.0 x 12 mm Roberto drug-eluting stent was deployed in the ostial LAD by V stenting approach due to left main and LAD mismatch. Using 3.5 x 8 mm noncompliant kissing balloon was performed simultaneously in LAD and circumflex. Patient immediately became bradycardic and hypotensive, subsequent shot did not show perforation however patient deteriorated into asystole. CPR was started. Patient was intubated, CPR was performed as per ACLS protocol for 25 minutes, unfortunately patient did not survive and . Please note that last four cine loops were taken half way and at the end of the code showing thrombus in the circumflex and LAD, no perforation or loss of flow was noted immediately after kissing balloon. Interventional RX Recommendation: PCI w/o planned CABG Pressures Phase:Rest AO : 123 / 70 ( 93 ) @ 3:56:55 PM 74 / 40 ( 52 ) @ 3:56:55 PM 103 / 59 ( 77 ) @ 3:56:55 PM 98 / 65 ( 80 ) @ 3:56:55 PM 97 / 61 ( 76 ) @ 3:56:55 PM 100 / 61 ( 77 ) @ 3:56:55 PM 149 / 140 ( 143 ) @ 3:56:55 PM 118 / 65 ( 87 ) @ 6:52:00 PM 130 / 72 ( 96 ) @ 6:54:00 PM Procedural Details Pre-Procedure Time Out. Identified patient by full name and date of as verbalized by the patient/guarantor. Does the consent match the physician's order: Yes. Accurate & Complete Informed Consent: Yes. Inpatient/Outpatient History & Physical on Chart: Yes. If H&P is completed, is and addenduem needed: No; If yes, is the addendum complete: No. Visualize and Verify Site with Patient/Guarantor: N/A. Relevant Radiology Images available: N/A. Pre-op teaching completed and patient verbalized understanding. The risks, benefits, and alternatives of sedation and/or procedure were discussed by physician. The patient agrees to continue. Procedure started. [facility] Clinical Fraility Score: 4: Vulnerable. Wire Twister Indications: Worsening Angina. Chest Pain Symptom Assessment: Typical Angina Symptoms. Correct patient, site and procedure confirmed by cath team. Current diagnosis: Chest Pain. PERRLA. Strong, equal hand near eastern archaeology lecturer bilaterally. Lungs clear x 5 lobes. IV Site on Arrival: 20 gauge in the right anticubital. IV Fluids: 0.9% NaCl at KVO. 600 mL infused prior to seed laboratory assistant. Oxygen started at 2liters/min via nasal canula. right groin was prepped with chloroprep then draped in the usual sterile fashion. Baseline sample Acquired. HR: 98 BPM. Physician notified. Physician arrived. Physician scrubbed in. Immediate Pre-Procedure Time Out. Correct Patient: Yes; Correct Procedure: Yes; Correct Site: Yes; Correct Patient Position: Yes; Correct Supplies: Yes; Dried Flammable Prep: Yes; Blood Products Available: N/A;. Soler catheter inserted using sterile technique. Pt arrived with [address], oozing blood around sheath. R groin sheath upsized to 7 Fr sheath. 6 emirati XB 3.5 guide catheter was inserted over the wire. Multiple views taken of left coronary artery. Runthrough guidewire was advanced through the guide catheter to lesion in the proximal Circumflex and positioned in the OM. IFR guidewire was advanced through the guide catheter to lesion in the prox Circ. Fractional flow reserve measurements obtained. IFR pullback 0.79, IFR spot 0.82 of Prox Circumflex. IFR wire removed. Concord wire inserted and positioned in the LAD. AP pads applied to patient chest. Balloon inserted to lesion in the prox LAD. Balloon inserted to lesion in the prox Circ. Inflation number : 1 A AB TREK 2.50X15 RX BALLOON was prepped and advanced across the Prox CX , then inflated to 14 NAKUL for 0:17 seconds. Inflation number : 1 A AB TREK 2.50X15 RX BALLOON was prepped and advanced across the Prox LAD , then inflated to 14 NAKUL for 0:11 seconds. Balloon in prox circumflex out. Balloon in Prox LAD out. Stent inserted to lesion in the prox Circ. After numerous attempts, the physicians was unable to cross the lesion with the 3.0x 22 mm stent. Scoreflex scoring balloon inserted to the Prox CX. Inflation number : 2 A Scoreflex 2.5 x 10mm was prepped and advanced across the Prox CX , then inflated to 14 NAKUL for 0:16 seconds. Inflation number: 3 The Scoreflex 2.5 x 10mm was reinflated across the Prox CX, to 14 NAKUL for 0:15 seconds. Inflation number: 4 The Scoreflex 2.5 x 10mm was reinflated across the Prox CX, to 14 NAKUL for 0:11 seconds. Scoreflex balloon out over the Runthrough wire. aPTT 112 seconds. After numerous attempts, the physicians was unable to cross the lesion with the 3.0x 22mm stent. Intact stent removed. Guideliner catheter inserted over the Runthrough wire. Stent inserted to lesion in the prox Circ. After numerous attempts, the physicians was unable to cross the lesion with the 3.0x 22mm stent. Inflation number : 5 A MDT NC EUPHORA RX [id number] BALLOON was prepped and advanced across the Prox CX , then inflated to 12 NAKUL for 0:16 seconds. Balloon inserted to lesion in the prox Circ. Inflation number: 6 The MDT NC EUPHORA RX [id number] BALLOON was reinflated across the Prox CX, to 15 NAKUL for 0:19 seconds. Balloon out. Stent inserted to lesion in the prox Circ. Inflation Number : 7 A MDT R ROBERTO 3.0X22 KEMAL -Lot Number# [id number] Exp 01/04/2024 was prepped and advanced across the Prox CX. The stent was deployed at 14 NAKUL for 0:20 seconds. Stent balloon out over wire. Inflation Number : 2 A MDT R ROBERTO 3.0X12 KEMAL -Lot Number# [id number] Exp 07/24/2024 was prepped and advanced across the Prox LAD. The stent was deployed at 14 NAKUL for 0:22 seconds. Stent inserted to lesion in the prox LAD. Stent balloon out over wire. Inflation number : 8 A MDT NC EUPHORA RX [id number] BALLOON was prepped and advanced across the Prox CX , then inflated to 10 NAKUL for 0:15 seconds. Inflation number : 3 A MDT NC EUPHORA RX [id number] BALLOON was prepped and advanced across the Prox LAD , then inflated to 20 NAKUL for 0:09 seconds. Inflation number: 9 The MDT NC EUPHORA RX [id number] BALLOON was reinflated across the Prox CX, to 16 NAKUL for 0:12 seconds. CODE:. CPR Started. Balloon inserted to lesion in the prox LAD. Balloon inserted to lesion in the prox Circ. Balloon out. Balloon out. Dr. Reynoso intubating patient at this time. Asystole. CPR started. VFib on monitor. Shocked at 120Joules. CPR Started. Asystole. CPR stopped at this time after multiple attempts at resuscitation. Code called at this time. See code flow sheet for code details. Procedure completed. Vital chart was stopped. Procedure Medications Start: 5:39 PM Stop: 5:39 PM Medication: Versed Amount: 2 mg Route: I.V. Start: 5:39 PM Stop: 5:39 PM Medication: Fentanyl Amount: 50 mcg Route: I.V. Start: 5:57 PM Stop: 5:57 PM Medication: Versed Amount: 2 mg Route: I.V. Start: 6:11 PM Stop: 6:11 PM Medication: Fentanyl Amount: 25 mcg Route: I.V. Start: 6:25 PM Stop: 6:25 PM Medication: Versed Amount: 1 mg Route: I.V. Start: 6:26 PM Stop: 6:26 PM Medication: Versed Amount: 1 mg Route: I.V. Start: 6:45 PM Stop: 6:45 PM Medication: Versed Amount: 2 mg Route: I.V. Start: 6:57 PM Stop: 6:57 PM Medication: Fentanyl Amount: 25 mcg Route: I.V. Start: 7:07 PM Stop: 7:07 PM Medication: Heparin Amount: 5000 units Route: I.V. Start: 7:07 PM Stop: 7:07 PM Medication: Lasix (furosemide) Amount: 60 mg Route: I.V. I, the attending physician, have reviewed and verified all procedure medications. Yes, all medications given per verbal order History/Risk Factors Hypertension: Yes Dyslipidemia: No Peripheral Arterial Disease (PAD): Yes Myocardial Infarction (AL): Yes Obesity: Yes Renal Disease: No Tobacco Use: Current/Recent(w/in 1 year) Prior Interventions PCI: Yes CABG: No Valve Surgery: No Date of PCI: 09/23/2022 Report Signatures Finalized by Jessica Hicks MD on 09/26/2022 02:06 AM
[2022-09-23] MEDS: aspirin 325 mg Tablet PO (17:10)
[2022-09-23 17:36] LABS: Partial Thromboplastin Time 185.3 SECONDS (23.9-36.7)
[2022-09-23 18:14] LABS: Partial Thromboplastin Time 112.9 SECONDS (23.9-36.7)
--- NOTE | 2022-09-23 20:07 | PC.NURSE ---
Patient received from mobile lab technician at approx 1400. Patient resting in bed with at bedside when he reported he was having some chest pain. Morphine was given and EKG done at that time. EKG shown to Dr. Hicks who told greeting card writer to call a STEMI alert. Patient taken back to mobile lab technician at that time. At approx 1300 patient returned from mobile lab technician and was resting in bed again with at bedside. Dr Hicks came in to evaluate patient and patient reported chest pain. Once again a EKG was done and given to Dr. Hicks who again said to take patient back to mobile lab technician. Patient taken back to mobile lab technician at approx 1700.
[2022-09-23 20:36] LABS: Partial Thromboplastin Time 228.1 SECONDS (23.9-36.7)
--- NOTE | 2022-09-23 21:00 | PC.NURSE ---
RAPID RESPONSE/CODE BLUE in CCL; 1910 Salvador/Atropine given 1909 Rapid Response activated 1910 Asystole/CPR. Code Blue activated 1911 Epi IVP 191 Pulse Check-Pulse present/SB 191 30 Etom and 100 succs IVP. Pt intubated with 8.0 ET/26@lip. 1920 Levo gtt order 1920 100mcg Kirby IVP ordered and given 1922 Family updated by Plant Inspector on patient current status/condition 1925 Asystole/CPR/ Code Blue activated overhead 192 Pulse Check/Asystole/CPR/ Epi IVP 1930 Pulse Check/V-fib/ 120j shock delivered/CPR 300 amio IVP 1931 Epi IVP 1932 Pulse Check/ V-fib/ 150j shock delivered/CPR 1933 150 Amio IVP 1934 Pulse Check/V-Fib/Shock/CPR 193 Epi IVP 1936 Pulse Check/PEA/CPR/Amp Bicarb IVP 1938 Pulse Check/PEA/CPR/Epi IVP 1941 Pulse Check/PEA/CPR 194 Epi IVP 1943 Pulse Check/PEA/CPR/100mcg Kirby IVP 1944 Epi IVP 1945 Pulse Check/PEA/CPR 1946 Epi IVP/IO in R shoulder placed 1947 Pulse Check/Salvador..PEA/CPR resumes 1950 Pulse Check/Asystole 1950 Imaging completed to determine if any contractility of heart/No heart rhythm and or rate determined 1950 TOD called@1950
--- NOTE | 2022-09-23 21:42 | PM.PN ---
Subjective Subjective: Patient underwent successful percutaneous intervention of left lower extremity with excellent angiographic result. During recovery patient started having chest pain EKG was performed which showed anterolateral ST depression Vitals/I&O/Wt Last Vital Signs Temp 97.8 F 09/23/22 10:04 Pulse 91 09/23/22 16:55 Resp 19 H 09/23/22 16:55 BP 156/102 09/23/22 16:55 Pulse Ox 98 09/23/22 16:55 O2 Del Method 09/23/22 16:51 Weight last 48 hrs Weight 240 lb Weight 240 lb Physical Exam Narrative: Patient is in moderate to severe distress with chest pain No JVD sinus is a Heart regular sinus Abdomen soft nontender normal Lower extremity no hematoma in the right groin palpable pulses on the left foot ADMINISTRATIVE SALES ASSISTANT grossly nonfocal A&P Assessment and plan (1) Acute coronary syndrome: Patient in severe chest pain with significant anterolateral ST depression we will proceed with emergent left heart cath (2) PAD (peripheral artery disease): Status post percutaneous intervention of left SFA and tibial peroneal trunk/anterior tibial artery with excellent angiographic result Attestations Medical Necessity Statement*: Patient require continuation hospitalization for above defined care Coding Level of Care Code Acute Code for Chg Fwd Diagnoses Acute coronary syndrome I24.9 PAD (peripheral artery disease) I73.9
--- NOTE | 2022-09-24 02:26 | P.DES_ITS ---
Discharge Providers DDS Date of Admission: 09/23/22 13:04 Date Summary Completed: 09/26/22 Attending Provider at Admission: Jessica Hicks MD Time of : 19:57 Attending Provider at Discharge: Jessica Hicks MD Primary Care Provider: Ryan Joseph MD DS Diagnoses Hospital Diagnoses (1) Acute coronary syndrome: (2) PAD (peripheral artery disease): Reason for Visit Reason for Visit Brief History: 72-year-old male past medical history significant for severe peripheral arterial disease diabetes mellitus nonhealing left foot ulcer neurogenic bladder foraminal stenosis of cervical region history of renal stone intermittent self- catheterization of bladder was referred to us for nonhealing left foot ulcer/left lower extremity peripheral angiogram and intervention patient was taken to Electronic Calibration Technician he was noted to have severe peripheral arterial disease with highly calcified iliacs and chronically occluded left SFA, no below the knee si gnificant blood supply was noted since anterior posterior tibial and peroneal arteries were occluded. Percutaneous intervention using CSI arthrectomy and balloon angioplasty with drug-coated balloon was performed in left SFA, primary balloon angioplasty of distal tibial peroneal trunk into anterior tibial was performed with excellent angiographic result and adventism of two-vessel runoff all the way to left foot. Patient recovered and transferred to coronary unit for post cath care. During my post-cath round patient was noted to be clenching chest, twelve-lead EKG was performed which was suggestive of anterolateral significant ST depression and ongoing ischemia, no prior EKG to compare. Patient was immediately taken to the Electronic Calibration Technician. He was noted to have chronically occluded RCA chronically subtotally occluded mid LAD highly calcified ostial LAD and proximal circumflex with moderate lesion in the obtuse marginal branch as well. Since EKG changes were anterolateral after somewhat difficulty were able to cross the mid LAD lesion, it was treated with 2 overlapping drug-eluting stents post dilated with noncompliant balloon. IVUS confirmed good apposition of the mid LAD stents. Since high contrast and radiation was achieved we decided to bring patient back in couple of weeks for stage PCI to ostial LAD and circumflex. Patient was transferred back to coronary care unit, after 1 hour I was called by the nurse that patient started complaining of excruciating chest pain I immediately saw the patient repeat EKG still showed anterolateral ST depression he was taken back to the Electronic Calibration Technician. LAD stent was patent. It was thought that ostial LAD and circumflex are the culprit vessels since this is an emergent situation with ongoing ischemia and chest pain we decided to proceed. We performed V stenting which went well however while performing last step of kissing balloon patient became bradycardic hypotensive and then degenerated to asystole. Despite of utmost effort and 25 minutes of CPR/intubation patient did not achieved ROSC. At that point with consensus of all members of team code was called off. Patient was pronounced . Summary Date and Time of Date of : 09/23/22 Time of : 19:57 Additional Data Advance directives?: No Discharge Plan Discharge Patient Disposition: Home Prescriptions: No Action cinnamon bark 500 mg capsule 500 mg PO DAILY pyridoxine (vitamin B6) 200 mg tablet extended release 200 mg PO DAILY Lumigan 0.01 % drops 1 drop ophthalmic (eye) DAILY Complete Multivitamin Tablet 1 tab PO DAILY elderberry fruit-honey 0.7-3 gram/7.5 mL liquid PO cranberry 1,000 mg capsule 1,000 mg PO DAILY coenzyme [id number] E 100-100 mg-unit capsule PO Combigan 0.2-0.5 % drops 1 drop ophthalmic (eye) BID turmeric 1 tab PO DAILY sodium chloride 0.9 % solution 1 irrig irrigation DAILY 30 Days Qty: 500 1RF hydrocodone-acetaminophen 5-325 mg tablet 1 tab PO Q6H PRN (Reason: pain) 30 Days Qty: 120 0RF (DME) Wheelchair See Rx Instructions .Route .MEDSUPPLY Qty: 1 0RF Rx Instructions: As directed HOME (DME) Diabetic shoes and 3 pairs of inserts See Rx Instructions .Route .MEDSUPPLY Qty: 1 0RF Rx Instructions: As directed HOME enalapril maleate 10 mg tablet See Rx Instructions .ROUTE .COMPLEX Qty: 90 3RF Dose Instruction: TAKE 1 TABLET BY MOUTH ONCE DAILY Rx Instructions: TAKE 1 TABLET BY MOUTH ONCE DAILY (DME) Accu-Chek Guide test strips Strip See Rx Instructions .ROUTE .COMPLEX Qty: 100 3RF Dose Instruction: TEST ONCE DAILY Rx Instructions: TEST ONCE DAILY glimepiride 2 mg tablet 2 mg PO BID metoprolol tartrate 25 mg tablet 25 mg PO BID Jardiance 25 mg tablet 25 mg PO DAILY Referrals: Karolina Abraham FNP [Nurse Practitioner] - (Please call Karolina Abraham's Office on Monday at [phone] to schedule a follow up appointment. Thank you.) Patient Instructions: Opioid Safety Discharge Date/Time: 09/24/22 03:36 DS Attestations Time Spent in /Discharge Care*: critical care time Quality - AMI: AMI present?: Yes Quality - Stroke: CVA present?: No Quality - VTE: VTE present?: No Coding Level of Care Code Acute Code for g Fwd Diagnoses Acute coronary syndrome I24.9 PAD (peripheral artery disease) I73.9
--- NOTE | 2022-09-24 02:26 | P.PN_ITS ---
Subjective Subjective: Post PCI to mid LAD patient started having chest pain again with severe distress. EKG was performed which still showed anterolateral ST depression Vitals/I&O/Wt Last Vital Signs Temp 97.8 F 09/23/22 10:04 Pulse 91 09/23/22 16:55 Resp 19 H 09/23/22 16:55 BP 156/102 09/23/22 16:55 Pulse Ox 98 09/23/22 16:55 O2 Del Method 09/23/22 16:51 Weight last 48 hrs Weight 240 lb Weight 240 lb Physical Exam Narrative: Patient is in severe distress with chest pain No JVD sinus is a Heart regular sinus Abdomen soft nontender normal SENIOR SYSTEMS ADMINISTRATOR grossly nonfocal A&P Assessment and plan (1) Acute coronary syndrome: We will take patient back for emergent left heart cath will assess stent and any other significant etiology. Patient and family has been explained all risk benefit and alternative for the procedure they understand it is an emergent procedure high risk PCI to ostial LAD and circumflex. They understand high risk for stroke major minor bleed urgent emergent bypass surgery contrast- induced nephropathy and radiation injury. They would like to proceed with it (2) PAD (peripheral artery disease): From a peripheral arterial disease perspective left lower extremity has been revascularized patient has good pulses in left foot Attestations Medical Necessity Statement*: Patient require continuation hospitalization for above defined care Coding Level of Care Code Acute Code for [facility] Diagnoses Acute coronary syndrome I24.9 PAD (peripheral artery disease) I73.9
--- NOTE | 2022-09-24 03:33 | PC.NURSE ---
Patient placed in [facility] 09/23/22 at 2100 by this nurse. All belongings were taken by family. Patient deemed MTS candidate 09/23/22 at 2350 by Virgen [facility] Coordinator. MTS picked up patient at 0330 09/24/22, body transfer paperwork completed.
== END 2022-09-24 03:36 | disposition home or self-care (01) ==
LOC: CCL 08:49 → CSU 13:16 → ICU 09-24 02:27 → CSU 09-24 09:56
PROVIDERS: PCP Family Medicine; Visit Provider Internal Medicine Cardiovascular Disease
DX: I24.9 Acute ischemic heart disease, unspecified (principal); I73.9 Peripheral vascular disease, unspecified; E11.621 Type 2 diabetes mellitus with foot ulcer; E11.59 Type 2 diabetes mellitus with other circulatory complications; N31.9 Neuromuscular dysfunction of bladder, unspecified; L97.529 Non-pressure chronic ulcer of other part of left foot with unspecified severity; I10 Essential (primary) hypertension; E66.9 Obesity, unspecified; Z68.30 Body mass index [BMI] 30.0-30.9, adult; I25.2 Old myocardial infarction; E78.5 Hyperlipidemia, unspecified; F17.290 Nicotine dependence, other tobacco product, uncomplicated
CPT/HCPCS: 36415; 36416; 37224; 37227; 37228; 75625; 75716; 82962; 85347; 85730; 92950; 92978; 93005; 93454; 93571; 96365; 96367; 99152; 99153; C1724; C1725; C1753; C1769; C1874; C1887; C1894; C2623; C9600; C9601; J0360; J0461; J0583; J1644; J1940; J2250; J2270; J2370; J2405; J2704; J3010; J3490; J7030; J7050; Q0163; Q9967